=== PATIENT | male | born 1955 | race African-American/Black ===

== ENCOUNTER 2022-12-07 21:43 | Inpatient (IN) | payer MEDICAID, OTHER ==
[~2022-12-07] VITALS: Ht 175.3 cm; Wt 130.9 kg
[2022-12-07 22:35] LABS: Basophils # (auto) 0 10 ^3/uL (0-0.2); Basophils % (auto) 0.5 % (0.0-2.0); Eosinophils # (auto) 0 10 ^3/uL (0-0.8); Hematocrit 40.3 % (41.0-53.0); Hemoglobin 13.1 g/dL (13.5-17.5); Lymphocytes # (auto) 3.2 10 ^3/uL (0.4-5.4); Mean Corpuscular Hemoglobin 28.2 pg (28.0-32.0); Mean Corpuscular Hgb Conc. 32.5 g/dL (32.0-36.0); Mean Corpuscular Volume 86.8 fL (80.0-100.0); Monocytes # (auto) 1.2 10 ^3/uL (0-1.3); Monocytes % (auto) 11.7 % (0.0-12.0); Neutrophils # (auto) 6.1 10 ^3/uL (1.6-8.6); Neutrophils % (auto) 57.8 % (37.0-80.0); Nucleated Red Blood Cells % 0.1 %; Red Blood Cells 4.64 10^6/uL (4.5-5.90); Red Cell Distribution Width 16.1 % (11.8-14.3); White Blood Cell 10.6 10^3/uL (4.4-10.8)
[2022-12-07 22:53] LABS: Albumin 3.3 g/dL (3.4-5.0); Calcium 9.1 mg/dL (8.5-10.1); Potassium 3.7 mmol/L (3.5-5.1)
[2022-12-07 22:57] LABS: BUN/Creatinine Ratio 14.4 (10.0-20.0); Bilirubin, Total 0.3 mg/dL (0.2-1.0); Total Protein 6.6 g/dL (6.4-8.2)
[2022-12-07 22:59] LABS: Urine Bacteria NONE SEEN /hpf (None Seen); Urine Blood Negative /uL (Negative); Urine Mucus FEW (None Seen); Urine Specific Gravity 1.028 (1.001-1.035); Urine WBC 3 /hpf (0 - 3)
[2022-12-07 23:09] LABS: Alcohol, Urine < 3.0 mg/dL (0-10); Amphetamine Screen, Urine NEGATIVE (NEGATIVE); Barbiturate Scree,Urine NEGATIVE (NEGATIVE); Benzodiazephine Screen, Urine NEGATIVE (NEGATIVE); Cannabinoid Screen, Urine NEGATIVE (NEGATIVE); Cocaine Screen, Urine NEGATIVE (NEGATIVE); Opiate Scree,Urine NEGATIVE (NEGATIVE); Phencyclidine Screen, Urine NEGATIVE (NEGATIVE)
[2022-12-08] MEDS ORDERED: DOXYCYCLINE 100MG/250ML 250 ML IV ONE (00:15)
[2022-12-08] MEDS ORDERED: ONDANSETRON HCL 4 MG/2 ML VIAL IV PRN (00:30)
[2022-12-08] MEDS ORDERED: MORPHINE SULFATE INJ 2 MG/ml SYRG IV PRN (04:00)
[2022-12-08] MEDS ORDERED: cefTRIAXone 1GM/50ML D5W 50 ML IV ONE (04:00)
[2022-12-08] MEDS ORDERED: TEMAZEPAM 15 MG CAP PO ONE (04:00)
[2022-12-08] MEDS ORDERED: NITROGLYCERIN 0.4 MG SL TAB SL PRN (04:00)
[2022-12-08] MEDS: SODIUM CHLOR 0.9% PF (SALINE LOCK) 10ML VIAL/SYR IV SCH ×3 (06:01→21:55)
[2022-12-08 06:08] LABS: Basophils # (auto) 0 10 ^3/uL (0-0.2); Basophils % (auto) 0.2 % (0.0-2.0); Eosinophils # (auto) 0 10 ^3/uL (0-0.8); Hematocrit 40.3 % (41.0-53.0); Hemoglobin 13.2 g/dL (13.5-17.5); Lymphocytes # (auto) 3.1 10 ^3/uL (0.4-5.4); Mean Corpuscular Hemoglobin 28.5 pg (28.0-32.0); Mean Corpuscular Hgb Conc. 32.7 g/dL (32.0-36.0); Mean Corpuscular Volume 87.1 fL (80.0-100.0); Monocytes # (auto) 1.4 10 ^3/uL (0-1.3); Neutrophils # (auto) 5.2 10 ^3/uL (1.6-8.6); Neutrophils % (auto) 53.8 % (37.0-80.0); Nucleated Red Blood Cells % 0.1 %; Red Blood Cells 4.62 10^6/uL (4.5-5.90); Red Cell Distribution Width 15.9 % (11.8-14.3); White Blood Cell 9.7 10^3/uL (4.4-10.8)
[2022-12-08 06:24] LABS: Potassium 3.5 mmol/L (3.5-5.1)
[2022-12-08 06:39] LABS: Albumin 3.3 g/dL (3.4-5.0); BUN/Creatinine Ratio 14.1 (10.0-20.0); Bilirubin, Total 0.5 mg/dL (0.2-1.0); Calcium 9.3 mg/dL (8.5-10.1); Total Protein 6.6 g/dL (6.4-8.2)
[2022-12-08] MEDS: cefTRIAXone 1GM/50ML D5W 50 ML IV SCH (10:00)
[2022-12-08] MEDS: amLODIPine BESYLATE 5 MG TAB PO SCH (10:01)
[2022-12-08] MEDS: ASPirin 81 mg TAB PO SCH (10:01)
[2022-12-08] MEDS: FAMOTIDINE (10MG/ML) 2ML VL IV SCH (10:02)
[2022-12-08] MEDS: hydrALAZINE HCL 20 MG/ML VL IV PRN ×2 (12:57→19:53)
[2022-12-08] MEDS: cloNIDine HCL 0.1 MG TAB PO PRN (14:57)
[2022-12-08] MEDS: FUROSEMIDE 40 MG/4 ML VIAL IV SCH (18:20)
[2022-12-08 19:54] VITALS: BP 165/99
[2022-12-08] MEDS: ACETAMINOPHEN 325 MG TAB PO PRN (19:57)
[2022-12-08] MEDS ORDERED: LORazepam 2MG/ML-1ML VIAL IV PRN (20:00)
[2022-12-08 20:29] LABS: Cholesterol 143 mg/dL (< 200); HDL Cholesterol 40 mg/dL (40-59); LDL Cholesterol 88 mg/dL (< 100); Triglycerides 113 mg/dL (< 150)
[2022-12-08] MEDS: MORPHINE SULFATE INJ 2 MG/ml SYRG IV PRN (21:23)
[2022-12-08 21:35] VITALS: BP 163/103
[2022-12-08] MEDS: cloNIDine HCL 0.1 MG TAB PO SCH (21:54)
[2022-12-09] MEDS: HYDROcodone-ACET 5/325MG TAB PO PRN ×3 (01:22→23:10)
[2022-12-09] MEDS ORDERED: DEXTROSE (50%) 50ML SYRG IV PRN (04:15)
[2022-12-09] MEDS: ACETAMINOPHEN 325 MG TAB PO PRN (04:31)
[2022-12-09 05:00] VITALS: BP 135/93
[2022-12-09 05:40] LABS: Basophils # (auto) 0 10 ^3/uL (0-0.2); Basophils % (auto) 0.3 % (0.0-2.0); Eosinophils # (auto) 0 10 ^3/uL (0-0.8); Hematocrit 46.4 % (41.0-53.0); Hemoglobin 15.2 g/dL (13.5-17.5); Lymphocytes # (auto) 3.3 10 ^3/uL (0.4-5.4); Lymphocytes % (auto) 29.4 % (10.0-50.0); Mean Corpuscular Hemoglobin 28.5 pg (28.0-32.0); Mean Corpuscular Hgb Conc. 32.9 g/dL (32.0-36.0); Mean Corpuscular Volume 86.7 fL (80.0-100.0); Monocytes # (auto) 1.6 10 ^3/uL (0-1.3); Monocytes % (auto) 14.3 % (0.0-12.0); Neutrophils # (auto) 6.3 10 ^3/uL (1.6-8.6); Nucleated Red Blood Cells % 0.1 %; Red Blood Cells 5.35 10^6/uL (4.5-5.90); Red Cell Distribution Width 15.7 % (11.8-14.3); White Blood Cell 11.3 10^3/uL (4.4-10.8)
[2022-12-09 06:31] LABS: Albumin 3.8 g/dL (3.4-5.0); Calcium 9.8 mg/dL (8.5-10.1); Potassium 3.2 mmol/L (3.5-5.1)
[2022-12-09 06:35] LABS: BUN/Creatinine Ratio 15.2 (10.0-20.0); Bilirubin, Total 0.7 mg/dL (0.2-1.0)
[2022-12-09 06:37] LABS: Total Protein 7.6 g/dL (6.4-8.2)
[2022-12-09] MEDS: InsuLIN REG 1unit/0.01ml Soln (100units/ml) SC SCH ×4 (07:00→21:45)
[2022-12-09] MEDS: FUROSEMIDE 40 MG/4 ML VIAL IV SCH ×2 (07:06→17:58)
[2022-12-09] MEDS: SODIUM CHLOR 0.9% PF (SALINE LOCK) 10ML VIAL/SYR IV SCH ×3 (07:07→21:44)
[2022-12-09] MEDS: ACCU-CHEK COMFORT CURVE STRIP VI SCH ×4 (07:08→21:44)
[2022-12-09] MEDS ORDERED: METO-289 PO (07:37)
[2022-12-09] MEDS ORDERED: GLIP5TAB12 PO (07:37)
[2022-12-09] MEDS ORDERED: KRIL1CAP11 PO (07:37)
[2022-12-09] MEDS ORDERED: LURA40TA PO (07:37)
[2022-12-09] MEDS ORDERED: LISI20TA28 PO (07:37)
[2022-12-09] MEDS ORDERED: METF-370 PO (07:37)
[2022-12-09] MEDS ORDERED: FUR20T PO (07:37)
[2022-12-09] MEDS ORDERED: TRAZ100T3 PO (07:37)
[2022-12-09] MEDS ORDERED: TAMS0.4C36 PO (07:37)
[2022-12-09] MEDS ORDERED: GABA400C11 PO (07:37)
[2022-12-09] MEDS ORDERED: MULT-578 OR (07:37)
[2022-12-09] MEDS ORDERED: CLON0.3T PO (07:37)
[2022-12-09] MEDS ORDERED: ALLO300T2 PO (07:37)
[2022-12-09] MEDS: hydrALAZINE HCL 20 MG/ML VL IV PRN ×2 (08:07→23:10)
[2022-12-09 09:00] VITALS: BP 154/115
[2022-12-09] MEDS: cefTRIAXone 1GM/50ML D5W 50 ML IV SCH (09:18)
[2022-12-09] MEDS: cloNIDine HCL 0.1 MG TAB PO SCH ×2 (09:19→21:44)
[2022-12-09] MEDS: amLODIPine BESYLATE 5 MG TAB PO SCH (09:21)
[2022-12-09] MEDS: METOPROLOL SUCCINATE XL 50 MG TAB PO SCH (09:21)
[2022-12-09] MEDS: ASPirin 81 mg TAB PO SCH (09:22)
[2022-12-09] MEDS: LISINOPRIL 20 MG TAB PO SCH (09:22)
[2022-12-09] MEDS: FAMOTIDINE (10MG/ML) 2ML VL IV SCH (09:23)
[2022-12-09 11:15] VITALS: BP 139/90
[2022-12-09 13:00] VITALS: BP 143/98
[2022-12-09 17:00] VITALS: BP 149/101
[2022-12-09 22:00] VITALS: BP 145/112
[2022-12-09] MEDS: cloNIDine HCL 0.1 MG TAB PO PRN (23:10)
[2022-12-10] VITALS (7 sets, daily range): BP systolic 114–151; BP diastolic 86–113
[2022-12-10] MEDS ORDERED: traZODone HCL 50 MG TAB PO ONE (02:15)
[2022-12-10] MEDS: cloNIDine HCL 0.1 MG TAB PO PRN (04:25)
[2022-12-10] MEDS: FUROSEMIDE 40 MG/4 ML VIAL IV SCH ×2 (05:49→19:08)
[2022-12-10] MEDS: ACCU-CHEK COMFORT CURVE STRIP VI SCH ×4 (05:52→22:00)
[2022-12-10] MEDS: SODIUM CHLOR 0.9% PF (SALINE LOCK) 10ML VIAL/SYR IV SCH ×3 (05:53→22:40)
[2022-12-10] MEDS: InsuLIN REG 1unit/0.01ml Soln (100units/ml) SC SCH ×4 (05:54→22:28)
[2022-12-10] MEDS: cefTRIAXone 1GM/50ML D5W 50 ML IV SCH (09:14)
[2022-12-10] MEDS: ASPirin 81 mg TAB PO SCH (09:16)
[2022-12-10] MEDS: LISINOPRIL 20 MG TAB PO SCH (09:16)
[2022-12-10] MEDS: cloNIDine HCL 0.1 MG TAB PO SCH ×2 (09:16→22:42)
[2022-12-10] MEDS: amLODIPine BESYLATE 5 MG TAB PO SCH (09:17)
[2022-12-10] MEDS: METOPROLOL SUCCINATE XL 50 MG TAB PO SCH (09:18)
[2022-12-10] MEDS: FAMOTIDINE (10MG/ML) 2ML VL IV SCH (09:18)
[2022-12-10] MEDS: HYDROcodone-ACET 5/325MG TAB PO PRN (22:01)
[2022-12-11] VITALS (7 sets, daily range): BP systolic 116–154; BP diastolic 74–97
[2022-12-11] MEDS: MORPHINE SULFATE INJ 2 MG/ml SYRG IV PRN (00:56)
[2022-12-11] MEDS: HYDROcodone-ACET 5/325MG TAB PO PRN ×2 (03:31→20:09)
[2022-12-11] MEDS: FUROSEMIDE 40 MG/4 ML VIAL IV SCH (06:03)
[2022-12-11] MEDS: SODIUM CHLOR 0.9% PF (SALINE LOCK) 10ML VIAL/SYR IV SCH ×3 (06:03→22:59)
[2022-12-11] MEDS: ACCU-CHEK COMFORT CURVE STRIP VI SCH ×4 (06:03→23:00)
[2022-12-11] MEDS: InsuLIN REG 1unit/0.01ml Soln (100units/ml) SC SCH ×4 (06:08→22:00)
[2022-12-11 06:23] LABS: Basophils # (auto) 0.1 10 ^3/uL (0-0.2); Basophils % (auto) 0.5 % (0.0-2.0); Eosinophils # (auto) 0 10 ^3/uL (0-0.8); Hematocrit 47.6 % (41.0-53.0); Lymphocytes # (auto) 4.4 10 ^3/uL (0.4-5.4); Lymphocytes % (auto) 29.1 % (10.0-50.0); Mean Corpuscular Hemoglobin 28.9 pg (28.0-32.0); Mean Corpuscular Hgb Conc. 33.5 g/dL (32.0-36.0); Mean Corpuscular Volume 86.4 fL (80.0-100.0); Monocytes # (auto) 2.4 10 ^3/uL (0-1.3); Monocytes % (auto) 15.8 % (0.0-12.0); Neutrophils # (auto) 8.2 10 ^3/uL (1.6-8.6); Neutrophils % (auto) 54.6 % (37.0-80.0); Nucleated Red Blood Cells % 0.1 %; Red Blood Cells 5.52 10^6/uL (4.5-5.90); Red Cell Distribution Width 15.7 % (11.8-14.3)
[2022-12-11 06:36] LABS: Calcium 9.8 mg/dL (8.5-10.1); Potassium 3.3 mmol/L (3.5-5.1)
[2022-12-11] MEDS: ASPirin 81 mg TAB PO SCH (11:04)
[2022-12-11] MEDS: cefTRIAXone 1GM/50ML D5W 50 ML IV SCH (11:04)
[2022-12-11] MEDS: LISINOPRIL 20 MG TAB PO SCH (11:04)
[2022-12-11] MEDS: METOPROLOL SUCCINATE XL 50 MG TAB PO SCH (11:05)
[2022-12-11] MEDS: cloNIDine HCL 0.1 MG TAB PO SCH ×2 (11:05→22:59)
[2022-12-11] MEDS: amLODIPine BESYLATE 5 MG TAB PO SCH (11:27)
[2022-12-11] MEDS ORDERED: POTASSIUM CHL 20 Meq TABLET PO ONE (11:30)
[2022-12-11] MEDS: NIFEdipine ER 30 MG TAB PO SCH (13:28)
[2022-12-11] MEDS: DOCUSATE SOD 100 MG CAP PO PRN (18:03)
[2022-12-12 05:00] VITALS: BP 133/92
[2022-12-12 05:57] LABS: BUN/Creatinine Ratio 19.3 (10.0-20.0); Calcium 9.3 mg/dL (8.5-10.1); Potassium 3.6 mmol/L (3.5-5.1)
[2022-12-12] MEDS: SODIUM CHLOR 0.9% PF (SALINE LOCK) 10ML VIAL/SYR IV SCH ×3 (06:18→22:05)
[2022-12-12] MEDS: ACCU-CHEK COMFORT CURVE STRIP VI SCH ×4 (06:19→22:05)
[2022-12-12] MEDS: InsuLIN REG 1unit/0.01ml Soln (100units/ml) SC SCH ×4 (06:39→22:06)
[2022-12-12 08:00] VITALS: BP 131/99
[2022-12-12 09:00] VITALS: BP 131/99
[2022-12-12] MEDS: NIFEdipine ER 30 MG TAB PO SCH (09:17)
[2022-12-12] MEDS: LISINOPRIL 20 MG TAB PO SCH (09:18)
[2022-12-12] MEDS: amLODIPine BESYLATE 5 MG TAB PO SCH (09:19)
[2022-12-12] MEDS: cloNIDine HCL 0.1 MG TAB PO SCH ×2 (09:20→22:05)
[2022-12-12] MEDS: METOPROLOL SUCCINATE XL 50 MG TAB PO SCH (09:21)
[2022-12-12] MEDS: ASPirin 81 mg TAB PO SCH (09:22)
[2022-12-12] MEDS: AMPICILLIN INJ 1 GM in SODIUM CHL 0.9% 100 ML IV SCH ×3 (09:26→20:41)
[2022-12-12] MEDS: SODIUM CHLORIDE 0.9% 1,000 ML IV SCH ×2 (11:07→18:37)
[2022-12-12 13:00] VITALS: BP 112/83
[2022-12-12 17:00] VITALS: BP 108/76
[2022-12-12 22:00] VITALS: BP 124/80
[2022-12-13] VITALS (7 sets, daily range): BP systolic 120–132; BP diastolic 72–89
[2022-12-13] MEDS: SODIUM CHLORIDE 0.9% 1,000 ML IV SCH ×2 (02:44→14:50)
[2022-12-13] MEDS: AMPICILLIN INJ 1 GM in SODIUM CHL 0.9% 100 ML IV SCH ×4 (02:51→22:18)
[2022-12-13] MEDS: SODIUM CHLOR 0.9% PF (SALINE LOCK) 10ML VIAL/SYR IV SCH ×3 (06:07→22:18)
[2022-12-13] MEDS: ACCU-CHEK COMFORT CURVE STRIP VI SCH ×4 (06:07→22:19)
[2022-12-13] MEDS: InsuLIN REG 1unit/0.01ml Soln (100units/ml) SC SCH ×4 (06:09→22:20)
[2022-12-13] MEDS ORDERED: LORazepam 2MG/ML-1ML VIAL IV PRN (10:00)
[2022-12-13] MEDS: NIFEdipine ER 30 MG TAB PO SCH (10:25)
[2022-12-13] MEDS: amLODIPine BESYLATE 5 MG TAB PO SCH (10:26)
[2022-12-13] MEDS: cloNIDine HCL 0.1 MG TAB PO SCH ×2 (10:26→22:18)
[2022-12-13] MEDS: ASPirin 81 mg TAB PO SCH (10:26)
[2022-12-13] MEDS: LISINOPRIL 20 MG TAB PO SCH (10:26)
[2022-12-13] MEDS: METOPROLOL SUCCINATE XL 50 MG TAB PO SCH (10:27)
[2022-12-13] MEDS ORDERED: ZOLPIDEM TARTRATE 5 MG TAB PO PRN (15:15)
[2022-12-13 17:23] LABS: Basophils # (auto) 0 10 ^3/uL (0-0.2); Basophils % (auto) 0.4 % (0.0-2.0); Eosinophils # (auto) 0 10 ^3/uL (0-0.8); Hematocrit 44.5 % (41.0-53.0); Hemoglobin 14.4 g/dL (13.5-17.5); Lymphocytes # (auto) 2.7 10 ^3/uL (0.4-5.4); Lymphocytes % (auto) 25.3 % (10.0-50.0); Mean Corpuscular Hemoglobin 28.3 pg (28.0-32.0); Mean Corpuscular Hgb Conc. 32.3 g/dL (32.0-36.0); Mean Corpuscular Volume 87.5 fL (80.0-100.0); Monocytes # (auto) 1.6 10 ^3/uL (0-1.3); Monocytes % (auto) 15.3 % (0.0-12.0); Neutrophils # (auto) 6.3 10 ^3/uL (1.6-8.6); Nucleated Red Blood Cells % 0.2 %; Red Blood Cells 5.09 10^6/uL (4.5-5.90); Red Cell Distribution Width 15.7 % (11.8-14.3); White Blood Cell 10.6 10^3/uL (4.4-10.8)
[2022-12-13 18:13] LABS: Calcium 8.9 mg/dL (8.5-10.1); Potassium 4.1 mmol/L (3.5-5.1)
[2022-12-13 18:16] LABS: BUN/Creatinine Ratio 20.2 (10.0-20.0)
[2022-12-13] MEDS: ZOLPIDEM TARTRATE 5 MG TAB PO PRN (23:38)
[2022-12-14] VITALS (7 sets, daily range): BP systolic 112–152; BP diastolic 73–95
[2022-12-14] MEDS: AMPICILLIN INJ 1 GM in SODIUM CHL 0.9% 100 ML IV SCH ×4 (02:59→22:01)
[2022-12-14 06:03] LABS: BUN/Creatinine Ratio 17.3 (10.0-20.0); Calcium 9.5 mg/dL (8.5-10.1)
[2022-12-14] MEDS: SODIUM CHLOR 0.9% PF (SALINE LOCK) 10ML VIAL/SYR IV SCH ×3 (06:04→21:52)
[2022-12-14] MEDS: ACCU-CHEK COMFORT CURVE STRIP VI SCH ×4 (06:37→22:03)
[2022-12-14] MEDS: InsuLIN REG 1unit/0.01ml Soln (100units/ml) SC SCH ×4 (06:37→22:00)
[2022-12-14] MEDS: ASPirin 81 mg TAB PO SCH (09:35)
[2022-12-14] MEDS: METOPROLOL SUCCINATE XL 50 MG TAB PO SCH (09:35)
[2022-12-14] MEDS: NIFEdipine ER 30 MG TAB PO SCH (09:35)
[2022-12-14] MEDS: cloNIDine HCL 0.1 MG TAB PO SCH ×2 (09:36→22:36)
[2022-12-14] MEDS: amLODIPine BESYLATE 5 MG TAB PO SCH (09:36)
[2022-12-14] MEDS: LISINOPRIL 20 MG TAB PO SCH (09:36)
[2022-12-14] MEDS: DOCUSATE SOD 100 MG CAP PO PRN (09:40)
[2022-12-14] MEDS: HYDROcodone-ACET 5/325MG TAB PO PRN (22:42)
[2022-12-14] MEDS: ZOLPIDEM TARTRATE 5 MG TAB PO PRN (23:53)
[2022-12-15] VITALS (7 sets, daily range): BP systolic 117–156; BP diastolic 79–95
[2022-12-15] MEDS: AMPICILLIN INJ 1 GM in SODIUM CHL 0.9% 100 ML IV SCH ×4 (03:03→22:10)
[2022-12-15] MEDS: SODIUM CHLOR 0.9% PF (SALINE LOCK) 10ML VIAL/SYR IV SCH ×3 (05:10→21:45)
[2022-12-15] MEDS: InsuLIN REG 1unit/0.01ml Soln (100units/ml) SC SCH ×4 (06:10→22:04)
[2022-12-15] MEDS: ACCU-CHEK COMFORT CURVE STRIP VI SCH ×4 (06:11→21:58)
[2022-12-15] MEDS: METOPROLOL SUCCINATE XL 50 MG TAB PO SCH (10:09)
[2022-12-15] MEDS: amLODIPine BESYLATE 5 MG TAB PO SCH (10:10)
[2022-12-15] MEDS: ASPirin 81 mg TAB PO SCH (10:10)
[2022-12-15] MEDS: LISINOPRIL 20 MG TAB PO SCH (10:10)
[2022-12-15] MEDS: NIFEdipine ER 30 MG TAB PO SCH (10:11)
[2022-12-15] MEDS: cloNIDine HCL 0.1 MG TAB PO SCH ×2 (10:12→21:52)
[2022-12-16] MEDS: HYDROcodone-ACET 5/325MG TAB PO PRN ×2 (02:17→22:45)
[2022-12-16] MEDS: ZOLPIDEM TARTRATE 5 MG TAB PO PRN ×2 (02:17→22:44)
[2022-12-16 05:00] VITALS: BP 133/75
[2022-12-16] MEDS: ACCU-CHEK COMFORT CURVE STRIP VI SCH ×4 (06:35→21:25)
[2022-12-16] MEDS: SODIUM CHLOR 0.9% PF (SALINE LOCK) 10ML VIAL/SYR IV SCH ×3 (06:35→21:15)
[2022-12-16] MEDS: InsuLIN REG 1unit/0.01ml Soln (100units/ml) SC SCH ×4 (06:38→21:30)
[2022-12-16 08:30] VITALS: BP 150/87
[2022-12-16] MEDS: AMPICILLIN INJ 1 GM in SODIUM CHL 0.9% 100 ML IV SCH ×3 (08:31→20:13)
[2022-12-16 09:11] VITALS: BP 150/87
[2022-12-16] MEDS: amLODIPine BESYLATE 5 MG TAB PO SCH (10:28)
[2022-12-16] MEDS: LISINOPRIL 20 MG TAB PO SCH (10:29)
[2022-12-16] MEDS: ASPirin 81 mg TAB PO SCH (10:29)
[2022-12-16] MEDS: cloNIDine HCL 0.1 MG TAB PO SCH ×2 (10:29→21:18)
[2022-12-16] MEDS: METOPROLOL SUCCINATE XL 50 MG TAB PO SCH (10:29)
[2022-12-16] MEDS: NIFEdipine ER 30 MG TAB PO SCH (10:30)
[2022-12-16 13:00] VITALS: BP 131/93
[2022-12-16 17:00] VITALS: BP 136/79
[2022-12-16 22:00] VITALS: BP 125/81
[2022-12-17] MEDS: AMPICILLIN INJ 1 GM in SODIUM CHL 0.9% 100 ML IV SCH ×2 (02:08→09:21)
[2022-12-17 05:00] VITALS: BP 127/93
[2022-12-17] MEDS: SODIUM CHLOR 0.9% PF (SALINE LOCK) 10ML VIAL/SYR IV SCH ×3 (05:17→20:56)
[2022-12-17] MEDS: ACETAMINOPHEN 325 MG TAB PO PRN (05:22)
[2022-12-17] MEDS: ACCU-CHEK COMFORT CURVE STRIP VI SCH ×4 (06:15→20:56)
[2022-12-17] MEDS: InsuLIN REG 1unit/0.01ml Soln (100units/ml) SC SCH ×4 (06:18→22:02)
[2022-12-17 08:26] VITALS: BP 118/74
[2022-12-17] MEDS: cloNIDine HCL 0.1 MG TAB PO SCH ×2 (09:19→20:57)
[2022-12-17] MEDS: METOPROLOL SUCCINATE XL 50 MG TAB PO SCH (09:19)
[2022-12-17] MEDS: NIFEdipine ER 30 MG TAB PO SCH (09:20)
[2022-12-17] MEDS: ASPirin 81 mg TAB PO SCH (09:20)
[2022-12-17] MEDS: LISINOPRIL 20 MG TAB PO SCH (09:20)
[2022-12-17] MEDS: amLODIPine BESYLATE 5 MG TAB PO SCH (09:21)
[2022-12-17 12:07] LABS: Basophils # (auto) 0 10 ^3/uL (0-0.2); Basophils % (auto) 0.2 % (0.0-2.0); Eosinophils # (auto) 0 10 ^3/uL (0-0.8); Hematocrit 44.6 % (41.0-53.0); Hemoglobin 14.5 g/dL (13.5-17.5); Lymphocytes # (auto) 2.8 10 ^3/uL (0.4-5.4); Lymphocytes % (auto) 26.8 % (10.0-50.0); Mean Corpuscular Hemoglobin 28.6 pg (28.0-32.0); Mean Corpuscular Hgb Conc. 32.4 g/dL (32.0-36.0); Monocytes # (auto) 1.3 10 ^3/uL (0-1.3); Monocytes % (auto) 12.9 % (0.0-12.0); Neutrophils # (auto) 6.2 10 ^3/uL (1.6-8.6); Neutrophils % (auto) 60.1 % (37.0-80.0); Nucleated Red Blood Cells % 0.2 %; Red Blood Cells 5.07 10^6/uL (4.5-5.90); White Blood Cell 10.4 10^3/uL (4.4-10.8)
[2022-12-17 12:22] LABS: BUN/Creatinine Ratio 19.1 (10.0-20.0); Calcium 9.5 mg/dL (8.5-10.1); Potassium 4.1 mmol/L (3.5-5.1)
[2022-12-17 13:00] VITALS: BP 120/75
[2022-12-17 17:00] VITALS: BP 133/75
[2022-12-17 20:00] VITALS: BP 118/74
[2022-12-17 21:49] VITALS: BP 133/88
[2022-12-17] MEDS: DOCUSATE SOD 100 MG CAP PO PRN (21:51)
[2022-12-17] MEDS: ZOLPIDEM TARTRATE 5 MG TAB PO PRN (23:01)
[2022-12-18] MEDS ORDERED: HYDROcodone-ACET 5/325MG TAB PO PRN (03:00)
[2022-12-18] MEDS: ACETAMINOPHEN 325 MG TAB PO PRN (04:16)
[2022-12-18 05:04] VITALS: BP 150/90
[2022-12-18] MEDS: ACCU-CHEK COMFORT CURVE STRIP VI SCH ×2 (06:15→12:12)
[2022-12-18] MEDS: SODIUM CHLOR 0.9% PF (SALINE LOCK) 10ML VIAL/SYR IV SCH ×2 (06:15→14:39)
[2022-12-18] MEDS: InsuLIN REG 1unit/0.01ml Soln (100units/ml) SC SCH ×2 (06:26→12:20)
[2022-12-18 08:16] VITALS: BP 144/91
[2022-12-18 08:30] VITALS: BP 144/91
[2022-12-18] MEDS ORDERED: LISI20TA28 PO (10:45)
[2022-12-18] MEDS: METOPROLOL SUCCINATE XL 50 MG TAB PO SCH (10:45)
[2022-12-18] MEDS: NIFEdipine ER 30 MG TAB PO SCH (10:45)
[2022-12-18] MEDS ORDERED: NIFE1TAB31 PO (10:45)
[2022-12-18] MEDS ORDERED: AML5T PO (10:45)
[2022-12-18] MEDS ORDERED: METO-6 PO (10:45)
[2022-12-18] MEDS ORDERED: ASPI-325 PO (10:45)
[2022-12-18] MEDS: amLODIPine BESYLATE 5 MG TAB PO SCH (10:46)
[2022-12-18] MEDS: ASPirin 81 mg TAB PO SCH (10:46)
[2022-12-18] MEDS: LISINOPRIL 20 MG TAB PO SCH (10:46)
[2022-12-18] MEDS: cloNIDine HCL 0.1 MG TAB PO SCH (10:47)
[2022-12-18] MEDS ORDERED: CIPR-173 PO (10:48)
[2022-12-18 11:20] VITALS: BP_SYST 118; BP_SYST 144; BP_DIAS 79; BP_DIAS 91
[2022-12-18 13:00] VITALS: BP 118/79
== END 2022-12-18 15:36 | disposition home or self-care (01) | DRG 199 ==
LOC: ER 21:43 → EDBD 21:43 → TELE 12-08 03:53 → TELE-EAST 12-08 21:35
PROVIDERS: ADMIT Nurse Practitioner Family; ATTEND Nurse Practitioner
PROC: 5A09357 Assistance with Respiratory Ventilation, Less than 24 Consecutive Hours, Continuous Positive Airway Pressure (ICD-10-PCS; principal; 2022-12-11)
PROC: 5A09357 Assistance with Respiratory Ventilation, Less than 24 Consecutive Hours, Continuous Positive Airway Pressure (ICD-10-PCS; 2022-12-12)
PROC: 5A09357 Assistance with Respiratory Ventilation, Less than 24 Consecutive Hours, Continuous Positive Airway Pressure (ICD-10-PCS; 2022-12-13)
PROC: 5A09357 Assistance with Respiratory Ventilation, Less than 24 Consecutive Hours, Continuous Positive Airway Pressure (ICD-10-PCS; 2022-12-14)
PROC: 5A09357 Assistance with Respiratory Ventilation, Less than 24 Consecutive Hours, Continuous Positive Airway Pressure (ICD-10-PCS; 2022-12-15)
PROC: 5A09357 Assistance with Respiratory Ventilation, Less than 24 Consecutive Hours, Continuous Positive Airway Pressure (ICD-10-PCS; 2022-12-17)
PROC: 5A09357 Assistance with Respiratory Ventilation, Less than 24 Consecutive Hours, Continuous Positive Airway Pressure (ICD-10-PCS; 2022-12-18)
DX: I16.1 Hypertensive emergency (principal); N17.9 Acute kidney failure, unspecified; I67.4 Hypertensive encephalopathy; J44.1 Chronic obstructive pulmonary disease with (acute) exacerbation; Z20.822 Contact with and (suspected) exposure to COVID-19; I11.0 Hypertensive heart disease with heart failure; N30.01 Acute cystitis with hematuria; E11.65 Type 2 diabetes mellitus with hyperglycemia; G47.10 Hypersomnia, unspecified; E66.01 Morbid (severe) obesity due to excess calories; F17.200 Nicotine dependence, unspecified, uncomplicated; Z68.41 Body mass index [BMI] 40.0-44.9, adult; Z82.49 Family history of ischemic heart disease and other diseases of the circulatory system; Z83.3 Family history of diabetes mellitus
CPT/HCPCS: 36415; 70450; 70551; 71045; 76536; 80048; 80053; 80061; 80307; 81001; 82962; 83036; 83605; 83880; 84484; 85025; 87040; 87086; 87088; 87186; 87426; 93005; 93306; 93886; 94660; 96365; 97110; 97116; 97163; 97530; G0378; J0696; J1815; J3490